=== PATIENT | female | born 1975 | race Caucasian/White ===

== ENCOUNTER 2018-01-27 08:00 | Outpatient (CLI) | payer MEDICAID ==
[2018-01-27 19:19] LABS: BASOPHILS # (AUTO) 0.1 10^3/uL (0.0-0.1); BASOPHILS % (AUTO) 1.1 %; EOSINOPHILS # (AUTO) 0.2 10^3/uL (0.0-0.7); EOSINOPHILS % (AUTO) 4.7 %; HGB - HEMOGLOBIN 11.5 g/dL (12.0-16.0); LYMPHOCYTES # (AUTO) 1.5 10^3/uL (1.5-3.5); LYMPHOCYTES % (AUTO) 30.2 %; MEAN CORPUSCULAR HEMOGLOBIN 25.9 pg (27.0-31.0); MEAN CORPUSCULAR VOLUME 81.1 fL (81.0-99.0); MONOCYTES # (AUTO) 0.5 10^3/uL (0.0-1.0); MONOCYTES % (AUTO) 9.4 %; NEUTROPHILS # (AUTO) 2.7 10^3/uL (1.5-6.6); NEUTROPHILS % (AUTO) 54.6 %; PLT - PLATELET COUNT 223 10^3/uL (130-450); RED BLOOD COUNT 4.45 10^6/uL (4.20-5.40); RED CELL DISTRIBUTION WIDTH 15.3 % (12.0-15.0); WHITE BLOOD COUNT 4.9 x10^3/uL (4.8-10.8)
[2018-01-27 19:28] LABS: CHOL/HDL RATIO 2.6 (<4.4); CHOLESTEROL 147 mg/dL; GLUCOSE 75 mg/dL (70-100); HDL CHOLESTEROL 56 mg/dL; LDL CHOLESTEROL,CALCULATED 82 mg/dL; LDL/HDL RATIO 1.5 (<4.4); VLDL CHOLESTEROL 9 mg/dL
== END 2018-01-27 08:01 ==
LOC: LAB.N 08:00
PROVIDERS: ATTEND Registered Nurse
DX: Z01.419 Encounter for gynecological examination (general) (routine) without abnormal findings (principal)
CPT/HCPCS: 36415; 80061; 82947; 83721; 84443; 85025

== ENCOUNTER 2018-02-16 17:52 | Outpatient (CLI) | payer MEDICAID ==
--- NOTE | 2018-02-17 09:53 | Ultrasound Report ---
PELVIC ULTRASOUND: 02/16/2018 CLINICAL INDICATION: Hypertrophy of the uterus. TECHNIQUE: Transabdominal pelvic ultrasound performed for global evaluation. Transvaginal pelvic ultrasound performed for detailed evaluation. Real-time scanning performed and static images obtained. FINDINGS: The uterus is anteverted, measuring 9.0 x 5.1 x 4.1 cm. The endometrium measures 11 mm. No focal myometrial lesion is present. The ovaries are normal, with the right measuring 3.7 x 2.0 x 2.3 cm, and the left measuring 2.3 x 1.8 x 1.3 cm. Trace free fluid is present. IMPRESSION: NORMAL PELVIC ULTRASOUND. TD: 02/17/2018 09:52
== END 2018-02-16 17:53 | disposition home or self-care (01) ==
LOC: DI 17:52
PROVIDERS: ATTEND Registered Nurse
DX: N85.2 Hypertrophy of uterus (principal)
CPT/HCPCS: 76830; 76856

== ENCOUNTER 2018-03-07 21:37 | Emergency (ER) | payer MEDICAID ==
[2018-03-07] MEDS ORDERED: HYDROcod/ACET 5/325 Prepack 4 PO STA (21:56)
[2018-03-07] MEDS ORDERED: predniSONE 20 MG TABLET PO STA (21:56)
--- NOTE | 2018-03-07 21:57 | ED Physician Documentation ---
PD HPI URI - Stated complaint Stated Complaint: BACK PX - Chief complaint Chief Complaint: Back Pain - History obtained from History obtained from: Patient - History of Present Illness Timing - onset: Yesterday (She developed runny nose and cough and sneezing yesterday. She has chronic arthritis of unclear type. She thinks she may have rheumatoid, I do not see any confirmation of this in the chart. She has never been on immunologic's. Regardless her arthritis flared up and she has pain everywhere from the hips up to the shoulders and neck. No fevers or chills. No shortness of breath.) Review of Systems Constitutional: reports: Myalgias, Fatigue. denies: Fever, Chills Nose: reports: Rhinorrhea / runny nose, Congestion, Sinus pressure / pain Throat: denies: Sore throat Respiratory: reports: Cough. 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 - Present Medications Home Medications: Ambulatory Orders Medication Instructions Recorded Confirmed Bupropion HCl [Wellbutrin Xl] 300 mg PO DAILY 03/07/18 03/07/18 HYDROcod/ACETAM 5/325 [[place] 5/325] 1 - 2 ea PO Q6H PRN #10 tablet 03/07/18 hydrOXYzine HCl [Hydroxyzine HCl] 1 tab PO PRN PRN 03/07/18 03/07/18 predniSONE [Deltasone] 20 mg PO [id number] #21 tab 03/07/18 - Allergies Allergies/Adverse Reactions: Allergies Allergy/AdvReac Type Severity Reaction Status Date / Time NSAIDS (Non-Steroidal AdvReac Unknown Verified 03/07/18 21:46 Anti-Inflamma - Social History Does the pt smoke?: Yes Smoking Status: Current every day smoker Does the pt drink ETOH?: Yes Does the pt have substance abuse?: No - Immunizations Immunizations are current?: Yes PD ED PE NORMAL - Vitals Vital signs reviewed: Yes - General General: Alert and oriented X 3, No acute distress - HEENT HEENT: PERRL, Ears normal, Moist mucous membranes, Pharynx benign - Neck Neck: Supple, no meningeal sign, No bony TTP - Cardiac Cardiac: RRR, No murmur - Respiratory Respiratory: No respiratory distress, Clear bilaterally - Abdomen Abdomen: Non tender - Extremities Extremities: No deformity, No tenderness to palpate, Normal ROM s pain - Neuro Neuro: Alert and oriented X 3, Normal speech - Psych Psych: Normal mood, Normal affect Results - Vitals Vitals: Vital Signs - 24 hr 03/07/18 21:45 Temperature 36.8 C Heart Rate 106 H Respiratory 16 Rate Blood Pressure 111/72 O2 Saturation 100 Oxygen O2 Source Room air Departure - Departure Disposition: Home, Self Care Clinical Impression: Viral syndrome, Polyarthralgia Condition: Good Record reviewed to determine appropriate education?: Yes Instructions: ED Viral Syndrome Prescriptions: HYDROcod/ACETAM 5/325 [[place] 5/325] 1 - 2 ea PO Q6H PRN #10 tablet PRN Reason: Pain predniSONE [Deltasone] 20 mg PO [id number] #21 tab Comments: Call your doctor to arrange a follow-up appointment, make the next available appointment. In the interim, return anytime if worse or if new symptoms develop. Do not drink or drive while taking narcotic pain medication. Note that many narcotic pain relievers also contain Tylenol/acetaminophen. Please ensure that your total dose of acetaminophen from all sources does not exceed 3 g (3000 mg) per day. You may get constipated while on this medication. Take a stool softener such as Colace twice a day while you are on it. Also add an pkua-bui-upbjzsy laxative such as senna or MiraLAX on any day that you do not have a bowel movement. If you received a narcotic pain medication or sedative while in the emergency department, do not drive for the next 24 hours.
[2018-03-07 22:10] VITALS: BP 122/69
== END 2018-03-07 22:04 | disposition home or self-care (01) ==
LOC: ED 21:37
DX: B34.9 Viral infection, unspecified (principal); M25.50 Pain in unspecified joint; F17.200 Nicotine dependence, unspecified, uncomplicated; M19.90 Unspecified osteoarthritis, unspecified site
CPT/HCPCS: 99283; J7512

== ENCOUNTER 2018-03-13 21:16 | Emergency (ER) | payer MEDICAID ==
[2018-03-13 21:25] VITALS: BP 106/73
--- NOTE | 2018-03-13 22:24 | ED Physician Documentation ---
PD HPI OPHTHO - Stated complaint Stated Complaint: EYE IRRITATION - Chief complaint Chief Complaint: Heent - History obtained from History obtained from: Patient - History of Present Illness Timing - onset: Yesterday Timing - details: Gradual onset Location: Both, Other (left > right) Quality / character: Itching, Aching Associated symptoms: Redness, Swelling, Discharge Recently seen: Emergency Dept (unrelated c/o) Review of Systems Constitutional: denies: Fever Eyes: reports: Discharge, Irritation. 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 - Present Medications Home Medications: Ambulatory Orders Medication Instructions Recorded Confirmed Bupropion HCl [Wellbutrin Xl] 300 mg PO DAILY 03/07/18 03/07/18 HYDROcod/ACETAM 5/325 [[place] 5/325] 1 - 2 ea PO Q6H PRN #10 tablet 03/07/18 hydrOXYzine HCl [Hydroxyzine HCl] 1 tab PO PRN PRN 03/07/18 03/07/18 predniSONE [Deltasone] 20 mg PO [id number] #21 tab 03/07/18 - Allergies Allergies/Adverse Reactions: Allergies Allergy/AdvReac Type Severity Reaction Status Date / Time NSAIDS (Non-Steroidal AdvReac Unknown Verified 03/07/18 21:46 Anti-Inflamma - Social History Does the pt smoke?: Yes Smoking Status: Current every day smoker Does the pt drink ETOH?: Yes Does the pt have substance abuse?: No - Immunizations Immunizations are current?: Yes - POLST Patient has POLST: No PD ED PE NORMAL - Vitals Vital signs reviewed: Yes - General General: Alert and oriented X 3, No acute distress, Well developed/nourished - HEENT HEENT: PERRL, EOMI PD ED PE EXPANDED - Eyes Eyes: Right eye, Injected conj/sclera, Exudate (trace (left)), Other (right eye with trace injection; left eye with moderate injected conjunctiva) Results - Vitals Vitals: Vital Signs - 24 hr 03/13/18 21:21 Temperature 37.4 C Heart Rate 96 Respiratory 16 Rate Blood Pressure 106/73 O2 Saturation 100 Oxygen O2 Source Room air PD MEDICAL DECISION MAKING - ED course Complexity details: reviewed old records, considered differential, d/w patient Departure - Departure Disposition: 01 Home, Self Care Clinical Impression: Conjunctivitis Condition: Good Instructions: ED Conjunctivitis Nonspecific Comments: Use the antibiotic drops as follows: 1 drop in each eye three times per day for 7 days. You can stop the drops on day 5 or 6 if the symptoms have resolved. Discharge Date/Time: 03/13/18 23:05
[2018-03-13] MEDS ORDERED: POLYMYXIN B/TRIMETH OPHTH DROPS EACHEYE STA (22:59)
== END 2018-03-13 23:05 | disposition home or self-care (01) ==
LOC: ED 21:16
DX: H10.9 Unspecified conjunctivitis (principal); F17.200 Nicotine dependence, unspecified, uncomplicated
CPT/HCPCS: 99282; 99283; A9270

== ENCOUNTER 2018-08-03 13:53 | Outpatient (CLI) | payer MEDICAID ==
--- NOTE | 2018-08-03 22:01 | XRAY Report ---
Reason: chronic back pain Procedure Date: 08/03/2018 Accession Number: [id number] / [id number] Procedure: XRN - Lumbar Spine 2 View CPT Code: FULL RESULT: EXAM: LUMBOSACRAL SPINE RADIOGRAPHY. EXAM DATE: 08/03/2018 02:14 PM. CLINICAL HISTORY: Chronic back pain. COMPARISONS: 04/04/2013 3:17 PM. TECHNIQUE: 3 views. FINDINGS: Alignment: There is persistent mild thoracolumbar scoliosis with concavity to the left centered at L1 and slight concavity to the right centered at L4. Qualitatively the degree of scoliosis is stable when compared to the previous exam. Bones: Five [id number]-txz-[id number] lumbar vertebral bodies are present. No fractures or bone lesions. Disks: There are degenerated narrowed disks at the L4-L5 and L5-S1 levels. These findings are also stable. Facets: No degenerative changes. Sacroiliac Joints: Unremarkable. Soft Tissues: Normal. The visualized bowel gas pattern is normal. IMPRESSION: 1. Stable appearance of the thoracolumbar scoliosis. 2. Stable appearance of the degenerated L4-L5 and L5-S1 disks. RADIA
== END 2018-08-03 13:54 | disposition home or self-care (01) ==
LOC: DI.N 13:53
PROVIDERS: ATTEND Physician Assistant Medical
DX: M41.85 Other forms of scoliosis, thoracolumbar region (principal); M51.36 Other intervertebral disc degeneration, lumbar region; M51.37 Other intervertebral disc degeneration, lumbosacral region
CPT/HCPCS: 72100

== ENCOUNTER 2022-01-13 15:19 | Outpatient (CLI) | payer MEDICAID ==
[2022-01-13 18:02] LABS: BASOPHILS # (AUTO) 0.1 10^3/uL (0.0-0.1); BASOPHILS % (AUTO) 1.6 %; EOSINOPHILS # (AUTO) 0.2 10^3/uL (0.0-0.7); EOSINOPHILS % (AUTO) 3.8 %; HCT - HEMATOCRIT 39.5 % (37.0-47.0); HGB - HEMOGLOBIN 12.3 g/dL (12.0-16.0); LYMPHOCYTES # (AUTO) 1.6 10^3/uL (1.5-3.5); LYMPHOCYTES % (AUTO) 31.4 %; MEAN CORPUSCULAR HEMOGLOBIN 27.3 pg (27.0-31.0); MEAN CORPUSCULAR HGB CONC 31.1 g/dL (32.0-36.0); MEAN CORPUSCULAR VOLUME 87.6 fL (81.0-99.0); MEAN PLATELET VOLUME 9.6 fL (7.9-10.8); MONOCYTES # (AUTO) 0.4 10^3/uL (0.0-1.0); NEUTROPHILS # (AUTO) 2.8 10^3/uL (1.5-6.6); PLT - PLATELET COUNT 291 10^3/uL (130-450); RED BLOOD COUNT 4.51 10^6/uL (4.20-5.40); RED CELL DISTRIBUTION WIDTH 13.9 % (12.0-15.0)
[2022-01-13 18:59] LABS: ALBUMIN 3.8 g/dL (3.2-5.5); ALBUMIN/GLOBULIN RATIO 1.1 (1.0-2.2); BILIRUBIN,TOTAL 0.3 mg/dL (0.2-1.0); CALCIUM 9.2 mg/dL (8.5-10.3); CREATININE 0.9 mg/dL (0.4-1.0); POTASSIUM 3.7 mmol/L (3.5-5.0); TOTAL PROTEIN 7.3 g/dL (6.7-8.2)
== END 2022-01-13 15:20 | disposition home or self-care (01) ==
LOC: LAB.N 15:19
PROVIDERS: ATTEND Physician Assistant
DX: Z13.9 Encounter for screening, unspecified (principal)
CPT/HCPCS: 36415; 80053; 85025

== ENCOUNTER 2024-01-05 10:03 | Outpatient (CLI) | payer MEDICAID ==
[2024-01-05 10:40] LABS: BASOPHILS # (AUTO) 0.1 10^3/uL (0.0-0.1); BASOPHILS % (AUTO) 1.3 %; EOSINOPHILS # (AUTO) 0.3 10^3/uL (0.0-0.7); EOSINOPHILS % (AUTO) 4.6 %; HCT - HEMATOCRIT 41.2 % (37.0-47.0); HGB - HEMOGLOBIN 12.9 g/dL (12.0-16.0); LYMPHOCYTES % (AUTO) 32.5 %; MEAN CORPUSCULAR HGB CONC 31.3 g/dL (32.0-36.0); MEAN CORPUSCULAR VOLUME 89.4 fL (81.0-99.0); MEAN PLATELET VOLUME 8.7 fL (7.9-10.8); MONOCYTES # (AUTO) 0.5 10^3/uL (0.0-1.0); MONOCYTES % (AUTO) 8.3 %; NEUTROPHILS # (AUTO) 3.3 10^3/uL (1.5-6.6); NEUTROPHILS % (AUTO) 53.1 %; PLT - PLATELET COUNT 267 10^3/uL (130-450); RED BLOOD COUNT 4.61 10^6/uL (4.20-5.40); WHITE BLOOD COUNT 6.2 x10^3/uL (4.8-10.8)
[2024-01-05 11:01] LABS: ALBUMIN 4.3 g/dL (3.2-5.5); ALBUMIN/GLOBULIN RATIO 1.2 (1.0-2.2); ALKALINE PHOSPHATASE 65 IU/L (42-121); ALT ALANINE AMINOTRANSFERASE 14 IU/L (10-60); AST ASPARTATE AMINOTRANSFERASE 15 IU/L (10-42); BILIRUBIN,TOTAL 0.4 mg/dL (0.2-1.0); BUN - BLOOD UREA NITROGEN 15 mg/dL (6-20); CALCIUM 9.6 mg/dL (8.5-10.3); CARBON DIOXIDE - CO2 30 mmol/L (21-32); CHLORIDE 100 mmol/L (101-111); CHOLESTEROL 170 mg/dL; GFR - MDRD 60 (>89); GLUCOSE 74 mg/dL (74-104); HDL CHOLESTEROL 56 mg/dL; LDL CHOLESTEROL,CALCULATED 93 mg/dL; LDL/HDL RATIO 1.7 (<4.4); POTASSIUM 3.4 mmol/L (3.5-4.5); SODIUM 136 mmol/L (135-145); TOTAL PROTEIN 7.9 g/dL (6.4-8.9); TRIGLYCERIDES 103 mg/dL (48-352); VLDL CHOLESTEROL 21 mg/dL
[2024-01-05 11:10] LABS: THYROID STIMULATING HORMONE 2.97 uIU/mL (0.34-5.60)
--- NOTE | 2024-01-05 13:53 | XRAY Report ---
PROCEDURE: Shoulder 2+V LT INDICATIONS: NECK PAIN, UPPER ARM PAIN TECHNIQUE: 3 views of the shoulder were acquired. COMPARISON: None. FINDINGS: Bones: No fractures or dislocations. No suspicious bony lesions. Visualized ribs appear intact. Soft tissues: No suspicious soft tissue calcifications. The visualized lungs are within normal limi ts. IMPRESSION: No acute bony abnormality. Reviewed by: Merline Roberson MD on 01/05/2024 1:51 PM PDT Approved by: Merline Roberson MD on 01/05/2024 1:51 PM PDT Station ID: [id number]
--- NOTE | 2024-01-05 13:58 | XRAY Report ---
PROCEDURE: Cervical Spine w/Flex/Ext 6+V INDICATIONS: NECK PAINN, UPPER ARM PAIN TECHNIQUE: 6 views of the cervical spine were acquired. COMPARISON: None. FINDINGS: Bones: No fractures or dislocations to the C7-T1 level. No suspicious bony lesions. There is revers al cervical curvature with apex at C5-6. Trace anterolisthesis of C4 on C5. Degenerative disc space n arrowing is most prominent at C6-7. There is normal range of motion between flexion and extension, wi th preserved normal bony alignment. Soft tissues: Prevertebral soft tissues are normal in thickness. IMPRESSION: Reversal of curvature as above. No significant foraminal narrowing. Reviewed by: Merline Roberson MD on 01/05/2024 1:56 PM PDT Approved by: Merline Roberson MD on 01/05/2024 1:56 PM PDT Station ID: [id number]
== END 2024-01-05 10:04 | disposition home or self-care (01) ==
LOC: DI 10:03
PROVIDERS: ATTEND Physician Assistant
DX: M54.2 Cervicalgia (principal); M79.622 Pain in left upper arm; F17.200 Nicotine dependence, unspecified, uncomplicated; Z13.220 Encounter for screening for lipoid disorders; Z13.29 Encounter for screening for other suspected endocrine disorder
CPT/HCPCS: 36415; 80053; 80061; 83721; 84443; 85025